=== PATIENT | male | born 1955 | race Caucasian/White ===

== ENCOUNTER 2018-07-11 23:59 | Inpatient (IN) | payer OTHER ==
[~2018-07-11] VITALS: Ht 177.8 cm; Wt 67.1 kg
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
[2018-07-12] MEDS ORDERED: IV NORMAL SALINE 1000ML BAG 1,000 ML IV ONE (00:15)
[2018-07-12 00:29] LABS: BASO # 0.1 x10^3/uL (0.0-0.2); BASO % 1 % (0-3); EOS # 0.4 x10^3/uL (0.0-0.7); EOS % 3 % (0-3); HEMATOCRIT 46.3 % (39.0-53.0); HEMOGLOBIN 15.6 g/dL (13.0-17.5); LYMPH % 23 % (24-48); MEAN CORPUSCULAR HEMOGLOBIN 31 pg (25-35); MEAN CORPUSCULAR HGB CONC 34 g/dL (31-37); MEAN CORPUSCULAR VOLUME 93 fL (79-100); MONO # 1.2 x10^3/uL (0.0-1.1); MONO % 9 % (0-9); NEUT # 8.6 x10^3uL (1.8-7.7); NEUT % 65 % (31-73); PLATELET COUNT 356 x10^3/uL (140-400); RED BLOOD COUNT 4.99 x10^6/uL (4.30-5.70); RED CELL DISTRIBUTION WIDTH 13.7 % (11.5-14.5); WHITE BLOOD COUNT 13.3 x10^3/uL (4.0-11.0)
[2018-07-12 00:38] LABS: CALCIUM 9.5 mg/dL (8.5-10.1); CREATININE 0.9 mg/dL (0.7-1.3); GFR 86.1; POTASSIUM 3.9 mmol/L (3.5-5.1)
[2018-07-12 00:44] LABS: ALBUMIN 3.5 g/dL (3.4-5.0); ALBUMIN/GLOBULIN RATIO 0.9 (1.0-1.7); MAGNESIUM 2.4 mg/dL (1.8-2.4); TOTAL BILIRUBIN 0.3 mg/dL (0.2-1.0); TOTAL PROTEIN 7.2 g/dL (6.4-8.2)
--- NOTE | 2018-07-12 00:52 | RAD ---
CT head without contrast. CT cervical spine without contrast. TECHNIQUE: Noncontrast CT imaging of the head and cervical spine multiplanar reconstructions was acquired. PQRS statement: CT scans at this facility use dose reduction including either automated exposure control, iterative reconstructions, and /or weight based radiation dosing via mA and kV modification when appropriate to reduce radiation dose to as low as reasonably achievable. HISTORY: Altered mental status. No other clinical history provided. CT head findings: No intracranial hemorrhage, mass, hydrocephalus, extra-axial fluid collections or infarction. No acute ischemic change. Orbits, mastoids, paranasal sinuses and bones are unremarkable. IMPRESSION: No acute intracranial CT abnormality. CT cervical spine findings: Craniocervical junction intact. Cervical vertebral body height and alignment intact. 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 No acute fracture of the cervical spine. Multilevel cervical disc height loss, soft disc bulges, endplate osteophytes and uncovertebral and facet spurs with multilevel severe neural foraminal stenoses and mild/moderate spinal canal stenoses. Lung apices and paraspinal tissues are unremarkable. IMPRESSION: No acute osseous injury of the cervical spine. Cervical disc disease. There is a chronic nonunion fracture of the tip of the C6 spinous process. Electronically signed by: Simon Dyson MD (07/12/2018 12:48 AM) [facility]
[2018-07-12 00:53] LABS: CREATINE KINASE 67 U/L (39-308)
[2018-07-12 00:58] LABS: BILIRUBIN,URINE NEGATIVE (NEG); CLARITY,URINE CLOUDY; COLOR,URINE YELLOW; NITRITE,URINE NEGATIVE (NEG); PH,URINE 6.5; PROTEIN,URINE NEGATIVE (NEG-TRACE); UROBILINOGEN,URINE 0.2 mg/dL (0.2 mg/dL)
[2018-07-12 01:04] LABS: BARBITURATES NEG (NEG); BENZODIAZEPINES NEG (NEG); CANNABINOIDS NEG (NEG); COCAINE NEG (NEG); METHADONE NEG (NEG); OPIATES NEG (NEG); PHENCYCLIDINE NEG (NEG)
[2018-07-12 01:06] LABS: AMPHETAMINE/METHAMPHETAMINE NEG (NEG)
[2018-07-12] MEDS ORDERED: MORPHINE SULFATE 4 MG/ML VIAL. IV PRN (01:15)
[2018-07-12] MEDS ORDERED: ONDANSETRON PF 4 MG/2 ML VIAL. IV PRN (01:15)
[2018-07-12] MEDS ORDERED: ACETAMINOPHEN 325 MG TABLET. PO PRN (01:15)
[2018-07-12 01:20] LABS: AMORPHOUS SEDIMENT,UR PRESENT /HPF; BACTERIA,URINE FEW /HPF (0-FEW); GRANULAR CASTS,URINE FEW /HPF; HYALINE CASTS, URINE MODERATE /HPF; RBC,URINE OCC /HPF (0-2); SQUAMOUS EPITHELIAL CELL,UR MOD /LPF; WBC,URINE OCC /HPF (0-4)
--- NOTE | 2018-07-12 01:30 | RAD ---
AP chest x-ray HISTORY: Altered mental status. FINDINGS: Heart size normal. Mediastinal silhouette is normal. No pneumothorax, pulmonary opacities or pleural effusions. The bones are unremarkable. IMPRESSION: No acute process. Electronically signed by: Simon Dyson MD (07/12/2018 1:26 AM) [facility]
--- NOTE | 2018-07-12 02:43 | NUR ---
Patient admission Pt arrived to the unit at approximately 0155 via gurney from the ED. Pt was oriented to room and unit routines. Patient information guide packet was explained and given to pt. All questions and concerns regarding pt's POC was addressed and answered. Pt verbalized understanding. Pt made comfortable in bed. Will continue to monitor pt closely.
[2018-07-12 03:00] VITALS: BP 124/88
[2018-07-12] MEDS ORDERED: No home medications (04:04)
--- NOTE | 2018-07-12 06:03 | EKG ---
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
--- NOTE | 2018-07-12 07:16 | NUR ---
During shift report, pt stated that he wants to go home. RN tries to educate pt and explain why pt needs to stay. Pt called his mother and RN spoke to her. His mother stated that he do not have any health insurance and do not want pt to stay. She have agreed to pick him up. Nursing optical instruments supervisor notified, Dr. Gooden notified and made aware. Report have been given to lizbeth Carter RN to monitor pt until his mother gets here to pick him up.
[2018-07-12 07:45] VITALS: BP 144/92
--- NOTE | 2018-07-12 08:39 | NUR ---
Patient and mother escorted by security and US down to car. AMA forms signed. IV discontinued. Tele off. All belongings with patient
== END 2018-07-12 08:41 | disposition left against medical advice (07) | DRG 312 ==
LOC: ER 23:59 → 5 NORTH 07-12 01:31
PROVIDERS: ADMIT Family Medicine; ATTEND Family Medicine
DX: R55 Syncope and collapse (principal); R41.82 Altered mental status, unspecified; Z53.21 Procedure and treatment not carried out due to patient leaving prior to being seen by health care provider; V89.2XXA Person injured in unspecified motor-vehicle accident, traffic, initial encounter; Y93.89 Activity, other specified; Y92.488 Other paved roadways as the place of occurrence of the external cause; Y99.8 Other external cause status
CPT/HCPCS: 36415; 70450; 71045; 72125; 80053; 80307; 81001; 82553; 83605; 83690; 83735; 83880; 84443; 84484; 85025; 93005; G0480; J7030; 99285-25; G0378